=== PATIENT | male | born 1980 | race Caucasian/White ===

== ENCOUNTER 2020-06-13 08:39 | Emergency (ER) | payer BC, SELFPAY ==
[2020-06-13 08:50] VITALS: BP 147/84; PULSE 68; RESP 12; TEMP 36.6; O2SAT 99
--- NOTE | 2020-06-13 08:51 | ED.EAR ---
HPI - Ear Problem General Chief complaint: Ear Stated complaint: Ear ache Time Seen by Provider: 06/13/20 08:51 Source: patient and RN notes reviewed History of Present Illness HPI Narrative: Patient is a 40-year-old male who presents the urgent care with complaints of left ear pain. Patient states that he believes he had a wax buildup in the ear and has been using Q-tips, [id number] drops and Debrox to try to remove the wax. Patient states he has been messing with it for the last 10 days. Denies of any fever or other upper respiratory symptoms. No other acute complaints. No acute distress noted. Patient aware of the plan of care. Some parts of this dictation were generated by voice recognition software and may contain typographical and/or grammatical inaccuracies. Related Data Home Medications Medication Instructions Recorded Confirmed latanoprost 1 drp OPHTHALMIC (EYE) DAILY 06/13/20 06/13/20 Allergies Allergy/AdvReac Type Severity Reaction Status Date / Time Penicillins Allergy Mild Hives Verified 06/13/20 08:50 Review of Systems Review of Systems: Narrative: CONSTITUTIONAL: Denies fever, chills, or sweats. EYES: Denies visual changes, redness, or discharge. ENT: Reports of left otalgia CARDIOVASCULAR: Denies chest pain, palpitations, or edema. RESPIRATORY: Denies cough or dyspnea. GASTROINTESTINAL: Denies abdominal pain, nausea, vomiting, or diarrhea. GENITOURINARY: Denies dysuria or hematuria. SKIN: Denies rash or itching. MUSCULOSKELETAL: Denies back pain, joint pain, or myalgia. NEUROLOGIC: Denies headache, numbness, or weakness. All other systems reviewed are negative, except as documented in HPI. PMFSH Comments At the time of my signature, I reviewed and agree with the nursing past medical, surgical, social, and family history. There is no relevant family history pertinent to the patient complaint. Exam Narrative: Exam Narrative: GENERAL: This is a well-nourished, well-developed patient, in no apparent distress. HEAD: normocephalic, atraumatic. EYES: PERRL. Sclera clear/white. Vision is grossly intact. EARS: External ears normal, left auditory canal edematous with moderate white to yellow drainage, erythema. Left TM injected with surrounding erythema. Right auditory canal clear and without drainage, right TM normal without perforation. Hearing grossly intact. NOSE: External nose normal with no obvious nasal discharge, nares without redness, no rhinorrhea. THROAT: Mucous membranes moist NECK: Neck supple SKIN: warm, intact with no suspicious lesions or rash, good texture and turgor. NEURO: awake, alert, and oriented to person, place and time. There were no obvious focal neurologic abnormalities. EXTREMITIES: No clubbing, cyanosis, or edema. Course Vital Signs Vital signs: Vital Signs Temperature 97.9 F 06/13/20 08:50 Pulse Rate 68 06/13/20 08:50 Respiratory Rate 12 06/13/20 08:50 Blood Pressure 147/84 H 06/13/20 08:50 Pulse Oximetry 99 06/13/20 08:50 Temperature 97.9 F 06/13/20 08:50 Pulse Rate 68 06/13/20 08:50 Respiratory Rate 12 06/13/20 08:50 Blood Pressure 147/84 H 06/13/20 08:50 Pulse Oximetry 99 06/13/20 08:50 Reviewed?patient is informed that they may have pre-hypertension or hypertension based on a blood pressure reading in the department. I recommend the patient call the primary care provider listed on their discharge instructions or a physician of their choice this week to arrange follow-up for further evaluation of possible pre-hypertension or hypertension. Medical Decision Making MDM Narrative Medical decision making narrative: Advised the patient to stop using [id number] eardrops, Debrox or Q-tips in the ear. Do not put any water peroxide in the ear. May use a warm compress to the outside of the ear for comfort and draining. Complete oral antibiotic regimen as prescribed. Make sure to eat and drink with the medication. Use eardrops to
== END 2020-06-13 09:08 | disposition home or self-care (01) ==
PROVIDERS: Emergency Provider Nurse Practitioner Family
DX: H60.502 Unspecified acute noninfective otitis externa, left ear (principal); H66.92 Otitis media, unspecified, left ear
CPT/HCPCS: 99213; G0463